=== PATIENT | male | born 1990 | race Caucasian/White ===

== ENCOUNTER 2016-11-21 23:05 | Emergency (ER) | payer SELFPAY ==
[~2016-11-21] VITALS: Ht 167.6 cm; Wt 72.6 kg
[2016-11-21 23:30] LABS: BASO % 1 % (0-3); EOS % 1 % (0-3); HEMOGLOBIN 15.4 g/dL (13.0-17.5); LYMPH # 1.9 x10^3/uL (1.0-4.8); LYMPH % 19 % (24-48); MEAN CORPUSCULAR HEMOGLOBIN 31 pg (25-35); MEAN CORPUSCULAR HGB CONC 34 g/dL (31-37); MEAN CORPUSCULAR VOLUME 92 fL (79-100); MONO % 7 % (0-9); NEUT % 73 % (31-73); PLATELET COUNT 259 x10^3/uL (140-400); RED BLOOD COUNT 4.92 x10^6/uL (4.30-5.70); WHITE BLOOD COUNT 10.2 x10^3/uL (4.0-11.0)
--- NOTE | 2016-11-21 23:38 | PHYS DOC ---
Past Medical History Past Medical History: No Pertinent History Past Surgical History: Tonsillectomy Additional Information: CHEWS TOBACCO Alcohol Use: None Drug Use: None Adult General Chief Complaint Chief Complaint: ABDOMINAL PAIN HPI HPI Patient is a 26 year old male with no significant past medical history presents with complaints of abdominal pain in the right middle abdomen, this has been going on for several days. Patient has been previously evaluated in ED and diagnosed with possible ulcers. Patient is to follow-up with GI but has not done so yet. Patient states the pain has been getting progressively worse. He has vomited one time nonbloody. There is no history of fevers, chills, diarrhea or rashes or trauma. No sick contacts. No recent travel. The pain does not migrate, is constant, no worsening or relieving factors. Review of Systems Review of Systems Constitutional: Denies fever or chills [] Eyes: Denies change in visual acuity, redness, or eye pain [] HENT: Denies nasal congestion or sore throat [] Respiratory: Denies cough or shortness of breath [] Cardiovascular: No chest pain GI: Yes to abdominal pain, nausea, vomiting. Denies bloody stools or diarrhea [] : Denies dysuria or hematuria [] Musculoskeletal: Denies back pain or joint pain [] Integument: Denies rash or skin lesions [] Neurologic: Denies headache, focal weakness or sensory changes [] Current Medications Current Medications Current Medications Medications (Trade) Dose Ordered Sig/Clarita Start Time Stop Time Status Last Admin Dose Admin Info (Do NOT chart on this entry -- for MONITORING) 1 each PRN DAILY PRN 11/21/16 23:45 11/23/16 23:44 Iohexol (Omnipaque 300 Mg/ml) 75 ml 1X ONCE 11/22/16 00:00 11/22/16 00:01 DC 11/21/16 23:56 75 ML Morphine Sulfate 4 mg 1X ONCE 11/22/16 00:30 11/22/16 00:31 DC 11/22/16 00:34 4 MG Ondansetron HCl (Zofran) 4 mg 1X ONCE 11/22/16 00:00 11/22/16 00:01 DC 11/21/16 23:50 4 MG Allergies Allergies Allergies Coded Allergies Type Severity Reaction Last Updated Verified No Known Drug Allergies 11/21/16 No Physical Exam Physical Exam Constitutional: Well developed, well nourished, mild distress, non-toxic appearance. [] HENT: Normocephalic, atraumatic, bilateral external ears normal, oropharynx moist, no oral exudates, nose normal. [] Eyes: , EOMI, conjunctiva normal, no discharge. [] Neck: Normal range of motion, no tenderness, trachea midline, no stridor. [] Cardiovascular:Heart rate regular rhythm, no murmur, equal pulses, normal perfusion Lungs & Thorax: Bilateral breath sounds clear to auscultation, no tachypnea Abdomen: Bowel sounds normal, soft,, no masses, no pulsatile masses. Periumbilical tenderness to palpation as well as right middle abdomen without guarding or rebound. Positive psoas sign, positive obturator sign, no other signs present. Skin: Warm, dry, no erythema, no rash. [] Back: No tenderness, no CVA tenderness. [] Extremities: No tenderness, no cyanosis, no DVT, ROM intact, no edema. [] Neurologic: Alert and oriented X 3, normal motor function, normal sensory function, no focal deficits noted. [] Psychologic: Affect normal, judgement normal, mood normal. [] Current Patient Data Vital Signs Vital Signs Date Time Temp Pulse Resp B/P (MAP) Pulse Ox O2 Delivery O2 Flow Rate FiO2 11/21/16 23:24 98.2 68 18 142/87 (105) 99 Room Air 98.2 Lab Values Laboratory Tests Test 11/21/16 23:22 11/22/16 00:00 White Blood Count 10.2 x10^3/uL (4.0-11.0) Red Blood Count 4.92 x10^6/uL (4.30-5.70) Hemoglobin 15.4 g/dL (13.0-17.5) Hematocrit 45.0 % (39.0-53.0) Mean Corpuscular Volume 92 fL (79-100) Mean Corpuscular Hemoglobin 31 pg (25-35) Mean Corpuscular Hemoglobin Concent 34 g/dL (31-37) Red Cell Distribution Width 13.0 % (11.5-14.5) Platelet Count 259 x10^3/uL (140-400) Neutrophils (%) (Auto) 73 % (31-73) Lymphocytes (%) (Auto) 19 % (24-48) L Monocytes (%) (Auto) 7 % (0-9) Eosinophils (%) (Auto) 1 % (0-3) Basophils (%) (Auto) 1 % (0-3) Neutrophils # (Auto) 7.4 x10^3uL (1.8-7.7) Lymphocytes # (Auto) 1.9 x10^3/uL (1.0-4.8) Monocytes # (Auto) 0.7 x10^3/uL (0.0-1.1) Eosinophils # (Auto) 0.1 x10^3/uL (0.0-0.7) Basophils # (Auto) 0.0 x10^3/uL (0.0-0.2) Sodium Level 141 mmol/L (136-145) Potassium Level 3.9 mmol/L (3.5-5.1) Chloride Level 104 mmol/L (98-107) Carbon Dioxide Level 28 mmol/L (21-32) Anion Gap 9 (6-14) Blood Urea Nitrogen 16 mg/dL (8-26) Creatinine 0.8 mg/dL (0.7-1.3) Estimated GFR (Cockcroft-Gault) 118.8 BUN/Creatinine Ratio 20 (6-20) Glucose Level 116 mg/dL (70-99) H Calcium Level 8.5 mg/dL (8.5-10.1) Total Bilirubin 0.2 mg/dL (0.2-1.0) Aspartate Amino Transferase (AST) 10 U/L (15-37) L Alanine Aminotransferase (ALT) 26 U/L (16-63) Alkaline Phosphatase 84 U/L (46-116) Total Protein 7.2 g/dL (6.4-8.2) Albumin 3.8 g/dL (3.4-5.0) Albumin/Globulin Ratio 1.1 (1.0-1.7) Lipase 94 U/L (73-393) Urine Opiates Screen Pos (NEG) Urine Methadone Screen Neg (NEG) Urine Barbiturates Neg (NEG) Urine Phencyclidine Screen Neg (NEG) Urine Amphetamine/Methamphetamine Neg (NEG) Urine Benzodiazepines Screen Neg (NEG) Urine Cocaine Screen Neg (NEG) Urine Cannabinoids Screen Neg (NEG) Urine Ethyl Alcohol Neg (NEG) Laboratory Tests 10/2/17 23:22 Laboratory Tests 11/21/16 23:22 EKG EKG [] Radiology/Procedures Radiology/Procedures IMPRESSION: Mild dilatation of the proximal small bowel with some wall thickening proximally in the region of the jejunum. This may reflect enteritis. Contracted gallbladder however the patient does not appear to have been NPO. No renal calculi or obstructive uropathy. No evidence of appendicitis.[] Course & Med Decision Making Course & Med Decision Making Pertinent Labs and Imaging studies reviewed. (See chart for details) [id number] patient looks well and in no distress, vital signs are unremarkable. Distress upon patient and the need to follow-up for reevaluation and for further evaluation with specialist. Patient agrees to follow-up as directed [] Dragon Disclaimer Dragon Disclaimer This electronic medical record was generated, in whole or in part, using a voice recognition dictation system. Departure Departure Impression: Primary Impression: Abdominal pain Disposition: HOME, SELF-CARE Condition: STABLE Patient Instructions: Abdominal Pain (Nonspecific) Additional Instructions: Please follow-up with your previously scheduled referrals with GI, please also follow with your PCP for recheck and reevaluation in 2 days. He may also follow- up at one of the clinics in the list provided to you. Scripts Sucralfate (CARAFATE) 1 Gm/10 Ml Oral.susp 10 ML PO QID for 7 Days, #1200 ML Prov: Tristin NEVAREZ MD 11/22/16 Acetaminophen With Codeine (ACETAMINOPHEN-COD #3 TABLET) 1 Each Tablet 1 TAB PO TID Y for PAIN for 2 Days, #8 TAB Prov: Tristin NEVAREZ MD 11/22/16 Tristin NEVAREZ MD Nov 21, 2016 23:38
[2016-11-21 23:44] LABS: CALCIUM 8.5 mg/dL (8.5-10.1); CREATININE 0.8 mg/dL (0.7-1.3); GFR 118.8; POTASSIUM 3.9 mmol/L (3.5-5.1)
[2016-11-21] MEDS ORDERED: CONTRAST GIVEN MC PRN (23:45)
[2016-11-21 23:48] LABS: ALBUMIN 3.8 g/dL (3.4-5.0); ALBUMIN/GLOBULIN RATIO 1.1 (1.0-1.7); TOTAL BILIRUBIN 0.2 mg/dL (0.2-1.0); TOTAL PROTEIN 7.2 g/dL (6.4-8.2)
[2016-11-21] MEDS: MORPHINE SULFATE 4 MG/ML DISP.SYRIN. IV ONE (23:50)
[2016-11-21] MEDS: ONDANSETRON PF 4 MG/2 ML VIAL. IV ONE (23:50)
[2016-11-21] MEDS: IOHEXOL 300 MG/ML 75 ML VIAL IV ONE (23:56)
[2016-11-22 00:25] LABS: BARBITURATES NEG (NEG); BENZODIAZEPINES NEG (NEG); CANNABINOIDS NEG (NEG); COCAINE NEG (NEG); METHADONE NEG (NEG); OPIATES POS (NEG); PHENCYCLIDINE NEG (NEG)
[2016-11-22 00:30] VITALS: BP 121/70
[2016-11-22] MEDS: MORPHINE SULFATE 4 MG/ML DISP.SYRIN. IV ONE (00:34)
--- NOTE | 2016-11-22 00:35 | RAD ---
CT abdomen and pelvis pre and post contrast: Reason for examination: Abdominal pain. Evaluate for appendicitis, infection, stone or perforation. Helical images were obtained through the abdomen and pelvis pre- and postadministration of 75 cc Omnipaque 300. Reconstruction was performed in sagittal and coronal planes. Exposure: One or more of the following individualized dose reduction techniques were utilized for this examination: 1. Automated exposure control 2. Adjustment of the mA and/or kV according to patient size 3. Use of iterative reconstruction technique. The lung bases are clear. The heart size is normal with no pericardial effusion evident. No abnormality seen at the liver, spleen, adrenal glands or pancreas. The gallbladder appears contracted however the patient has not been NPO. No choleliths are identified. The abdominal aorta and inferior vena cava show no acute abnormalities. The kidneys show no renal masses, renal calculi, hydronephrosis or evidence of obstructive uropathy. The small intestinal tract shows some mild dilatation and wall thickening which may reflect some enteritis. There is no apparent obstruction. The colon shows no evidence of diverticulosis or diverticulitis. There is no evidence of appendicitis. No abnormality seen at the bladder, prostate gland or seminal vesicles. No free fluid or free air is evident. No acute bony abnormalities are evident. IMPRESSION: Mild dilatation of the proximal small bowel with some wall thickening proximally in the region of the jejunum. This may reflect enteritis. Contracted gallbladder however the patient does not appear to have been NPO. No renal calculi or obstructive uropathy. No evidence of appendicitis. Electronically signed by: Indu Gonzalez MD (11/22/2016 12:31 AM) [id number]
[2016-11-22] MEDS ORDERED: ACET1TAB33 PO (00:44)
[2016-11-22] MEDS ORDERED: SUCR1ORA5 PO (00:44)
== END 2016-11-22 01:10 | disposition home or self-care (01) ==
LOC: ER 23:05
DX: R10.33 Periumbilical pain (principal); F17.220 Nicotine dependence, chewing tobacco, uncomplicated
CPT/HCPCS: 36415; 74178; 80053; 80307; 83690; 85025; 96374; 96375; 96376; 99285; J2270; J2405; Q9967; G0479